=== PATIENT | female | born 1955 | race African-American/Black ===

== ENCOUNTER 2024-09-12 13:18 | Inpatient (IN) | payer MEDICARE, OTHER ==
[~2024-09-12] VITALS: Ht 149.9 cm; Wt 62.1 kg
[2024-09-12] MEDS ORDERED: MAG HYDROX/AL HYDROX/SIMETH 30 ML LIQUID UDC PO PRN (14:15)
[2024-09-12] MEDS ORDERED: MAGNESIUM HYDROXIDE 30 ML LIQUID UDC PO PRN (14:15)
[2024-09-12] MEDS ORDERED: ZOLPIDEM 5 MG TABLET PO PRN (14:15)
[2024-09-12 20:03] VITALS: BP 119/81; TEMP 98.2; O2SAT 99
[2024-09-12] MEDS: LORAZEPAM 1 MG TABLET PO PRN (22:24)
[2024-09-13] MEDS: TEMAZEPAM 7.5 MG CAPSULE PO PRN (00:12)
[2024-09-13] MEDS: OLANZAPINE 10 MG VIAL IM ONE (01:43)
[2024-09-13] MEDS: OLANZAPINE ZYDIS 5 MG TAB.RAPDIS PO SCH (20:52)
[2024-09-13] MEDS: CEphaleXIN 500 MG CAPSULE PO SCH (20:52)
[2024-09-13] MEDS: LORAZEPAM 0.5 MG TABLET PO PRN (20:52)
[2024-09-13 22:11] VITALS: BP 173/95; TEMP 97.9; O2SAT 99
[2024-09-14 08:14] LABS: ALANINE AMINOTRANSFERASE 20 U/L (14-59); ALBUMIN 3.2 g/dL (3.4-5.0); ALKALINE PHOSPHATASE 81 U/L (50-136); ASPARTATE AMINOTRANSFERASE 20 U/L (15-37); BILIRUBIN,TOTAL 0.4 mg/dL (0.2-1.0); CALCIUM 9.2 mg/dL (8.5-10.1); CARBON DIOXIDE 28 mmol/L (21-32); CHLORIDE 107 mmol/L (98-107); CHOLESTEROL 194 mg/dL (<200); CREATININE 0.5 mg/dL (0.6-1.3); GLUCOSE 136 mg/dL (74-106); HDL CHOLESTEROL 58 mg/dL (40-60); POTASSIUM 3.9 mmol/L (3.5-5.1); SODIUM SERUM 143 mmol/L (136-145); TOTAL PROTEIN, SERUM 6.8 g/dL (6.4-8.2); TRIGLYCERIDES 113 MG/DL (30-150); UREA NITROGEN, BLOOD 11 mg/dL (7-18)
[2024-09-14 08:15] LABS: BASOPHILS % (AUTO) 0.7 % (0.0-2.0); EOSINOPHILS # (AUTO) 0.2 K/uL (0.0-0.7); EOSINOPHILS % (AUTO) 4.6 % (0.0-7.0); HEMATOCRIT 38.8 % (31.2-41.9); HEMOGLOBIN 12.6 g/dL (10.9-14.3); LYMPHOCYTES # (AUTO) 1.2 K/uL (0.8-4.8); LYMPHOCYTES % (AUTO) 31.8 % (20.5-51.5); MEAN CORPUSCULAR HEMOGLOBIN 27.3 uug (24.7-32.8); MEAN CORPUSCULAR HGB CONC 32 g/dL (32.3-35.6); MEAN CORPUSCULAR VOLUME 84.4 fL (75.5-95.3); MONOCYTES # (AUTO) 0.4 K/uL (0.1-1.30); MONOCYTES % (AUTO) 10.6 % (0.0-11.0); NEUTROPHILS # (AUTO) 1.9 K/uL (1.8-8.9); NEUTROPHILS % (AUTO) 52.3 % (38.5-71.5); PLATELET COUNT (AUTO) 242 K/uL (179-408); RED CELL DISTRIBUTION WIDTH 12.9 % (12.3-17.7); WHITE BLOOD COUNT (AUTO) 3.7 K/uL (3.8-11.8)
[2024-09-14 08:26] VITALS: BP 110/61; TEMP 98.2; O2SAT 96
[2024-09-14] MEDS: OLANZAPINE ZYDIS 5 MG TAB.RAPDIS PO SCH (10:18)
[2024-09-14 12:23] LABS: THYROID STIMULATING HORMONE 1.494 mIU/mL (0.358-3.740)
[2024-09-14 15:55] VITALS: BP 109/58; TEMP 98.2; O2SAT 98
[2024-09-14 20:00] VITALS: BP 122/71; TEMP 98.1; O2SAT 97
[2024-09-14] MEDS: TEMAZEPAM 7.5 MG CAPSULE PO PRN (21:44)
[2024-09-14] MEDS: OLANZAPINE 10 MG VIAL IM ONE (23:53)
[2024-09-15 00:36] VITALS: BP 121/68; O2SAT 98
[2024-09-15 08:12] VITALS: BP 132/66; TEMP 98.3; O2SAT 100
[2024-09-15 16:16] VITALS: BP 148/75; TEMP 97.6; O2SAT 90
[2024-09-15 20:00] VITALS: BP 128/69; TEMP 97.4; O2SAT 99
[2024-09-15] MEDS: OLANZAPINE ZYDIS 5 MG TAB.RAPDIS PO SCH (21:25)
[2024-09-16 07:57] VITALS: BP 115/65; TEMP 98; O2SAT 100
[2024-09-16] MEDS: OLANZAPINE ZYDIS 5 MG TAB.RAPDIS PO SCH (08:44)
[2024-09-16] MEDS: DIVALPROEX SPRINKLE 125 MG CAP.SPRINK PO SCH (17:23)
[2024-09-17 08:14] VITALS: BP 140/74; TEMP 98; O2SAT 100
[2024-09-17 16:37] VITALS: BP 133/81; TEMP 98.3; O2SAT 100
[2024-09-17] MEDS: OLANZAPINE ZYDIS 5 MG TAB.RAPDIS PO SCH (17:48)
[2024-09-17 20:18] VITALS: BP 102/62; TEMP 99.1; O2SAT 100
[2024-09-18 08:16] VITALS: BP 138/81; TEMP 97.8; O2SAT 99
[2024-09-18 16:44] VITALS: BP 138/101; TEMP 98; O2SAT 99
[2024-09-18 20:15] VITALS: BP 125/63; TEMP 98.1; O2SAT 98
[2024-09-19 10:42] VITALS: BP 120/61; TEMP 98.5; O2SAT 96
[2024-09-19] MEDS: OLANZAPINE 2.5 MG TABLET PO PRN (15:24)
[2024-09-19 15:39] VITALS: BP 110/86; TEMP 98.6; O2SAT 96
[2024-09-19 19:23] VITALS: BP 107/72; TEMP 99.2; O2SAT 95
[2024-09-19] MEDS: OLANZAPINE ZYDIS 5 MG TAB.RAPDIS PO SCH (20:08)
[2024-09-20 06:42] VITALS: BP 109/63; TEMP 97.3; O2SAT 100
[2024-09-20 07:56] VITALS: BP 161/75; TEMP 98.2; O2SAT 100
[2024-09-20 15:20] VITALS: BP 103/69; TEMP 98; O2SAT 98
[2024-09-21 07:45] VITALS: BP 127/77; TEMP 98.2; O2SAT 98
[2024-09-21] MEDS: OLANZAPINE ZYDIS 5 MG TAB.RAPDIS PO SCH (14:11)
[2024-09-21 15:16] VITALS: BP 105/68; TEMP 98; O2SAT 100
[2024-09-21] MEDS: OLANZAPINE 10 MG VIAL IM ONE (17:25)
[2024-09-21 20:00] VITALS: BP 142/84; TEMP 98; O2SAT 100
[2024-09-22 07:38] VITALS: BP 168/88; TEMP 98; O2SAT 96
[2024-09-22] MEDS: OLANZAPINE ZYDIS 5 MG TAB.RAPDIS PO SCH (13:16)
[2024-09-22 15:31] VITALS: BP 140/80; TEMP 98; O2SAT 99
[2024-09-22 20:00] VITALS: BP 114/65; TEMP 98; O2SAT 97
[2024-09-23 15:00] VITALS: BP 186/99; TEMP 98; O2SAT 96
[2024-09-23 20:46] VITALS: BP 128/68; TEMP 98.7; O2SAT 100
[2024-09-24 08:08] VITALS: BP 122/71; TEMP 98.1; O2SAT 94
[2024-09-24] MEDS: ACETAMINOPHEN 325 MG TABLET PO PRN (08:14)
[2024-09-24 16:35] VITALS: BP 118/71; TEMP 98; O2SAT 98
[2024-09-24 20:18] VITALS: BP 120/68; TEMP 98.1; O2SAT 96
[2024-09-25 07:34] LABS: BASOPHILS % (AUTO) 0.2 % (0.0-2.0); EOSINOPHILS % (AUTO) 0.6 % (0.0-7.0); HEMATOCRIT 38.8 % (31.2-41.9); HEMOGLOBIN 12.5 g/dL (10.9-14.3); LYMPHOCYTES % (AUTO) 18.8 % (20.5-51.5); MEAN CORPUSCULAR HEMOGLOBIN 27.2 uug (24.7-32.8); MEAN CORPUSCULAR HGB CONC 32 g/dL (32.3-35.6); MONOCYTES # (AUTO) 0.5 K/uL (0.1-1.30); MONOCYTES % (AUTO) 9.2 % (0.0-11.0); NEUTROPHILS # (AUTO) 3.9 K/uL (1.8-8.9); NEUTROPHILS % (AUTO) 71.2 % (38.5-71.5); PLATELET COUNT (AUTO) 228 K/uL (179-408); RED BLOOD CELL COUNT(AUTO) 4.62 MIL/uL (3.63-4.92); RED CELL DISTRIBUTION WIDTH 12.8 % (12.3-17.7); WHITE BLOOD COUNT (AUTO) 5.4 K/uL (3.8-11.8)
[2024-09-25 07:41] LABS: DIFFERENTIAL COMMENT 1
[2024-09-25 07:49] LABS: ALBUMIN 3.2 g/dL (3.4-5.0); BILIRUBIN,TOTAL 0.3 mg/dL (0.2-1.0); CALCIUM 9.3 mg/dL (8.5-10.1); CREATININE 0.6 mg/dL (0.6-1.3); POTASSIUM 3.9 mmol/L (3.5-5.1); TOTAL PROTEIN, SERUM 7.6 g/dL (6.4-8.2)
[2024-09-25 08:06] VITALS: BP 146/91; TEMP 97.7; O2SAT 94
[2024-09-25 16:46] VITALS: BP 153/95; TEMP 98.2; O2SAT 100
[2024-09-25 19:56] VITALS: BP 124/73; TEMP 98.1; O2SAT 98
[2024-09-26 08:10] VITALS: BP 104/83; TEMP 98.3; O2SAT 96
== END 2024-09-26 11:15 | DRG 885 ==
LOC: ER 13:18 → GPS 13:28 → GPSOV3 09-18 23:52 → GPS 09-20 06:28
PROVIDERS: ADMIT Psychiatry & Neurology Psychosomatic Medicine; ATTEND Nurse Practitioner Family
DX: F29 Unspecified psychosis not due to a substance or known physiological condition (principal); G92.8 Other toxic encephalopathy; N39.0 Urinary tract infection, site not specified; E44.1 Mild protein-calorie malnutrition; F39 Unspecified mood [affective] disorder; E88.09 Other disorders of plasma-protein metabolism, not elsewhere classified; I10 Essential (primary) hypertension; F16.10 Hallucinogen abuse, uncomplicated; F14.10 Cocaine abuse, uncomplicated
CPT/HCPCS: 36415; 70450; 71045; 80164; 84443; 85025; A4663; J2358